=== PATIENT | male | born 1965 | race Two or more races ===

== ENCOUNTER 2019-04-08 05:48 | Day surgery (SDC) | payer OTHER | END 2019-04-08 14:26 | disposition home or self-care (01) | LOC: GIL 05:48 | DX: Z12.11 Encounter for screening for malignant neoplasm of colon (principal); K64.8 Other hemorrhoids; D12.5 Benign neoplasm of sigmoid colon; D12.3 Benign neoplasm of transverse colon; I10 Essential (primary) hypertension; E11.9 Type 2 diabetes mellitus without complications | CPT/HCPCS: 45385; 82962; 88305 ==